=== PATIENT | female | born 1955 | race Caucasian/White ===

== ENCOUNTER 2021-08-26 05:40 | Outpatient (CLI) | payer BC ==
[~2021-08-26] VITALS: Ht 162.6 cm; Wt 68.5 kg
[2021-08-26] MEDS ORDERED: ASPI-999 PO (11:02)
[2021-08-26] MEDS ORDERED: FLUO40CA PO (11:02)
[2021-08-26] MEDS ORDERED: ATOR40TA70 PO (11:02)
[2021-08-26] MEDS ORDERED: ALPR0.5T7 PO (11:02)
== END 2021-08-26 11:08 | disposition home or self-care (01) ==
LOC: PREOP 05:40
PROVIDERS: ATTEND Surgery
DX: Z01.818 Encounter for other preprocedural examination (principal)

== ENCOUNTER 2021-09-08 10:27 | Day surgery (SDC) | payer BC ==
[~2021-09-08] VITALS: Ht 162.6 cm; Wt 68.5 kg
[~2021-09-08 10:27] MED LIST: ALPR0.5T7 PO; ASPI-999 PO; ATOR40TA70 PO; FLUO40CA PO
[2021-09-08] MEDS ORDERED: LACTATED RINGERS 1,000 ML IV STA (10:42)
[2021-09-08] MEDS ORDERED: LACTATED RINGERS 1,000 ML IV ONE (10:48)
[2021-09-08 10:55] VITALS: BP 132/90
[2021-09-08] MEDS ORDERED: PROPOFOL INJECTION 50 ML IV ONE (11:53)
--- NOTE | 2021-09-08 12:16 | Progress Note-Post Operative ---
Post-Operative Progess Note Surgeon (s)/Overlay Plastician (s) Surgeon GAYLA NÚÑEZ DO Overlay Plastician: none Pre-Operative Diagnosis Screening Post-Operative Diagnosis Normal colon Procedure & Operative Findings Date of Procedure 09/08/21 Procedure Performed/Findings Colonoscopy Anesthesia Type per HOUSE FATHER Estimated Blood Loss Estimated blood loss (mL): none Specimens/Packing Specimens Removed none GAYLA NÚÑEZ DO Sep 08, 2021 12:16
--- NOTE | 2021-09-08 12:18 | Discharge Inst-Simple/Standard ---
Discharge Inst-Standard Patient Instructions/Follow Up Plan of Care/Instructions/FU: Repeat screening colonoscopy in 10 years Activity as Tolerated: Yes Discharge Diet: No Restrictions GAYLA NÚÑEZ DO Sep 08, 2021 12:17
[2021-09-08 12:21] VITALS: BP 104/69
[2021-09-08 12:25] VITALS: BP 125/80
--- NOTE | 2021-09-08 12:26 | Anesthesia-General Post-Op ---
MAC Patient Condition Mental Status/LOC: Same as Preop Cardiovascular: Satisfactory Nausea/Vomiting: Absent Respiratory: Satisfactory Pain: Controlled Complications: Absent Post Op Complications Complications None Follow Up Care/Instructions Patient Instructions None needed. Anesthesiology Discharge Order Discharge Order Patient is doing well, no complaints, stable vital signs, no apparent adverse anesthesia problems. No complications reported per nursing. MITCH ZEPEDA CRNA Sep 08, 2021 12:26
[2021-09-08 12:50] VITALS: BP 125/80
--- NOTE | 2021-09-08 18:05 | OPERATIVE REPORT ---
DATE OF SERVICE: 09/08/2021 PREOPERATIVE DIAGNOSIS: Screening colonoscopy. POSTOPERATIVE DIAGNOSIS: Normal colon. PROCEDURE PERFORMED: Colonoscopy. SURGEON: Gayla Cohen DO. ANESTHESIA: Per MARKETING COMMUNICATIONS MANAGER. ESTIMATED BLOOD LOSS: None. COMPLICATIONS: None. INDICATIONS FOR PROCEDURE: The patient is a 66-year-old female needing screening colonoscopy. She understands risks and benefits of procedure and wished to proceed. Consent was signed in the chart. DESCRIPTION OF PROCEDURE: The patient was taken to the endoscopy suite and placed in the left lateral recumbent position. Timeout was performed. Digital rectal exam was performed. No palpable polyps, masses or ulcerations. Scope was inserted in the rectum and advanced all the way to cecum with minimal difficulty. Prep was adequate. Scope was slowly retracted back. No polyps, masses or ulcerations within the cecum, ascending, transverse, descending and sigmoid colon. Once in the rectum, scope was retroflexed noting no other pathology. Scope was returned to its normal position, slowly withdrawn until completely removed. The patient tolerated procedure well without any complications. She was taken to the recovery room in stable condition. RECOMMENDATIONS: The patient will need a repeat colonoscopy in 10 years. Any issues before that be seen at that time. Job ID: [id number] DocumentID: [id number] Dictated Date: 09/08/2021 12:22:16 Passenger Service Supervisor Date: 09/08/2021 18:04:01 Dictated By: GAYLA COHEN DO
== END 2021-09-08 12:50 | disposition home or self-care (01) ==
LOC: ENDO 10:27
PROVIDERS: ATTEND Surgery
DX: Z12.11 Encounter for screening for malignant neoplasm of colon (principal); F17.210 Nicotine dependence, cigarettes, uncomplicated; Z79.82 Long term (current) use of aspirin